=== PATIENT | male | born 1990 | race Caucasian/White ===

== ENCOUNTER 2016-11-20 08:40 | Emergency (ER) | payer SELFPAY ==
[~2016-11-20] VITALS: Ht 177.8 cm; Wt 95.3 kg
[2016-11-20] MEDS ORDERED: BACTRIM DS 8001 TA1 PO (10:08)
== END 2016-11-20 10:13 | disposition home or self-care (01) ==
LOC: ED 08:40
DX: S61.211A Laceration without foreign body of left index finger without damage to nail, initial encounter (principal); F17.200 Nicotine dependence, unspecified, uncomplicated; Z88.6 Allergy status to analgesic agent; W45.8XXA Other foreign body or object entering through skin, initial encounter; Y93.89 Activity, other specified; Y92.9 Unspecified place or not applicable; Y99.9 Unspecified external cause status

== ENCOUNTER 2016-12-10 04:01 | Inpatient (IN) | payer SELFPAY ==
[~2016-12-10] VITALS: Ht 177.8 cm; Wt 113.9 kg
[2016-12-10] VITALS (7 sets, daily range): BP systolic 120–153; BP diastolic 63–89
--- NOTE | ~2016-12-10 | PR ---
[place], [place] PROGRESS NOTE NAME: DOUGLAS MENSAH UNIT #: [id number] ROOM: 516 DOCTOR: PANDA LONGORIA DPM BIRTHDATE: [birth year] DOS: 12/13/2016 SUBJECTIVE: The patient presents postop day 1 post I and D of abscess, right foot. OBJECTIVE: The compressive dressing is intact with no breakthrough bleeding. Cap refill time is normal to the digit of the right foot. ASSESSMENT: Postop I and D, right foot. PLAN: The patient is to continue nonweightbearing status with crutches, dressing will be kept intact until tomorrow, and will be changed by Dr. Roy. PANDA LONGORIA DPM CM:BIMAL [id number] PANDA LONGORIA DPM 12/14/16 0250 interface
--- NOTE | ~2016-12-10 | PR ---
[place], [place] PROGRESS NOTE NAME: DOUGLAS MENSAH UNIT #: [id number] ROOM: 516 DOCTOR: RICKI BENAVIDEZ III, DPM BIRTHDATE: [birth year] DOS: 12/12/2016 TIME OF DICTATION: 11:44 a.m. SUBJECTIVE: This is a 26-year-old male seen at bedside for followup and reevaluation status post bedside I and D 2 days ago. The patient relates continued pain to the right foot. He denies any fevers, chills, nausea, vomiting, chest pain, shortness of breath, calf pain or thigh pain. OBJECTIVE: Neurovascular status is unchanged. The patient has residual cellulitis appreciated to the medial arch with pus drainage noted with pressure to the I and D site. No soft tissue crepitation. No cellulitis tracking to the proximal leg. Negative Homans', negative calf pain. Muscle strength is maintained. ASSESSMENT: Status post incision and drainage 2 days ago with residual abscess, right foot. Treatment plans, recommendations, findings as well as prognosis discussed in detail with the patient. All questions were answered to the patient's apparent satisfaction. This is a 26-year-old male seen at bedside, status post I and D of his right foot 2 days ago. The patient appears to have residual abscess appreciated to the right foot despite MRI findings suggesting no residual abscess. There is positive pus drainage noted with pressure to the I and D site of his right foot. Discussed the options with the patient. I think it is best to perform an I and D in the operating room to evacuate all potential infection. The patient is in agreement with plan. He will be n.p.o. starting now. We will consent him for an incision and drainage of his abscess to the right foot. All questions were answered. RICKI BENAVIDEZ III, DPM CM:BIMAL [id number] RICKI BENAVIDEZ III, DPM 12/13/16330 interface
--- NOTE | ~2016-12-10 | CON ---
[place], [place] REPORT OF CONSULTATION NAME: DOGULAS MENSAH UNIT #: [id number] ROOM: 516 DOCTOR: KELLY DE LEON DPM BIRTHDATE: [birth year] DOS: 12/10/2016 PODIATRY CONSULT SUBJECTIVE: This 26-year-old white male is seen in this consult for evaluation of a cellulitis and pain in his right foot. He states about a week ago, he was working on his trailer and he fell through a board. He was wearing a work boot, nothing punctured his foot, nothing bled according to the patient, but he started to get pain in the right foot. After that 2 days ago, he went to the [place] [facility] were they discharged him on oral antibiotics. He went to the [facility] today and was subsequently admitted. He states he got a large blister on the bottom of his foot, but again denies any other ever being a wound there. Denies any insect bite, puncture at this time. PAST MEDICAL HISTORY: Positive for psychiatric problems. CURRENT MEDICATIONS: Includes; Lovenox, Restoril, Zofran, morphine and the antibiotics were Zosyn and vancomycin. ALLERGIES: CONTRAST DYE WELL IBUPROFEN. OBJECTIVE: Pedal pulses are palpable. Hair growth is present. Skin temperature is warm. CFT is immediate to the digits. Sensation is grossly intact and symmetrical. No signs of muscle atrophy. Muscle strength is full without any deficits. The plantar right foot just at the distal arch has an area of a blister that is fluctuance, it is about 2 cm in diameter area, there is tenderness noted to palpation. There is some edema and erythema surrounding this by about 2-3 cm, but the fluctuance areas about 2 cm and there is no open wound. No sign of bite or puncture at this time. ASSESSMENT: Abscess, plantar right foot cellulitis, right foot. PLAN: Consult is performed. I used a 15 blade, incised the large area of blister and drainage, probably about 3-4 mL of purulent and serosanguineous fluid. No signs of foreign body was noted. I did cultured the area, flushed the area with saline and applied a dry dressing. I am going to order an MRI of the area to evaluate for any retained foreign body or a deep space abscess. The abscess this time looks full thickness, it does not look like ____, there is no deep sinus tracts and right now, no signs of a deep space infection, but we will have to monitor for that. We will see what the MRI shows, if there is any retained foreign body or any deep space abscess. I told him if it did show any of these things ____ antibiotics. he would need to go to surgery for a surgical I and D in the OR. Continue the antibiotics, again cultures were done, were sent for gram stain aerobic and anaerobic culture and sensitivity, and will reevaluate him tomorrow. Thank you for the opportunity to take part in care of this patient. [place], [place] REPORT OF CONSULTATION NAME: DOUGLAS MENSAH UNIT #: [id number] ROOM: 516 DOCTOR: KELLY DE LEON DPM BIRTHDATE: [birth year] KELLY DE LEON DPM CM:CONSTR:REPORT OF CONSULTATION 1238 12/11/16 0204 interface
--- NOTE | ~2016-12-10 | PR ---
[place], [place] PROGRESS NOTE NAME: DOUGLAS MENSAH UNIT #: [id number] ROOM: 516 DOCTOR: PANDA LONGORIA DPM BIRTHDATE: [birth year] DOS: 12/11/2016 SUBJECTIVE: The patient seen 1 day postop I and D plantar aspect of the right foot. The patient feels relief at this time after the incision and drainage. OBJECTIVE: Pedal pulses palpable. There is plantar incision site with mild purulent drainage noted on the dressing, which was applied after the procedure yesterday. There is localized erythema surrounding the incision site, tenderness upon palpation, edema still noted of the foot. Results of the right foot MRI revealed no drainable abscess or foreign body. I discussed the case via telephone with the radiologist personally. It showed plantar soft tissue swelling and edema. ASSESSMENT: Abscess, infection, plantar right foot. PLAN: Apply Bactroban and dressing daily. Consulted Infectious Disease, possible 2 weeks of IV antibiotics if warranted. Discussed with the patient, he should not go home from the hospital yet at this time as there is still erythema to the plantar foot and the patient is at risk. Discussed possible further I and D if warranted, but as the MRI was negative for further drainable abscess or foreign body, we will continue local wound care, offloading and antibiotics. The patient will be seen tomorrow by Dr. Easley for followup. PANDA LONGORIA DPM CM:PNYANNI [id number] PANDA LONGORIA DPM 12/12/16 1018 interface
--- NOTE | ~2016-12-10 | O ---
[place], [place] OPERATIVE NOTE NAME: DOUGLAS MENSAH UNIT #: [id number] ROOM: 516 DOCTOR: GET BENAVIDEZ III, DPM BIRTHDATE: [birth year] DOS: 12/12/2016 SURGEON: Get Benavidez DPM DISTRICT SUPERVISOR: Torres Diaz DPM ANESTHESIA: Monitored anesthesia care. PREOPERATIVE DIAGNOSIS: Residual abscess, right foot. POSTOPERATIVE DIAGNOSIS: Residual abscess, right foot. PROCEDURE: I and D of abscess, right foot. HEMOSTASIS: None. ESTIMATED BLOOD LOSS: 10 mL. MATERIALS: Half inch packing was applied to the base of the wound at the conclusion of the case. INJECTABLES: Approximately 30 mL of 0.5% Marcaine plain was injected in a local ankle block type fashion at the start of the case. FINDINGS: The patient had residual abscess that tracked plantarly as well as in a medial direction. The abscess was evacuated. Partial closure was performed and the remaining aspect of the wound was packed open. COMPLICATIONS: None. HISTORY OF PRESENT ILLNESS: This is a 26-year-old male who was seen at bedside yesterday regarding an I and D that was performed at the bedside a few days prior. On examination, the patient appeared to have residual abscess that was appreciated. Despite the fact that MRI did not appreciate any foreign body or appreciable abscess, there was one present on clinical exam. The patient had some redness that was extending into the right arch as well as pain upon palpation. I felt that it was in the patient's best interest to have a more thorough I and D in the operating room. The patient was in agreement with plan. All risks, benefits, complications, procedures, alternatives were discussed and all questions were answered to his apparent satisfaction. The pre, silverio, postoperative course was discussed as well. PHYSICAL EXAMINATION: VASCULAR: DP and PT pulses are palpable, CFT within normal limits, mild edema to the plantar foot. DERMATOLOGY: The patient has a deep wound appreciated to the subfourth metatarsal head with what appears to be a fluctuant area adjacent to the wound. There was localized pus appreciated with pressure to the wound, there was also some erythema extending into the arch as well. No soft tissue crepitation. No cellulitis or lymphangitis tracking proximally. [place], [place] OPERATIVE NOTE NAME: DOUGLAS MENSAH UNIT #: [id number] ROOM: 516 DOCTOR: GET BENAVIDEZ III, DPM BIRTHDATE: [birth year] NEUROLOGIC: Intact protective sensation. ORTHOPEDIC: Muscle strength is maintained. Negative Homans', negative calf pain. PROCEDURE IN DETAIL: The patient was brought to the operating room and laid on the table in supine position. Foot was prepped and draped in usual sterile fashion. Pneumatic compression device was placed on the contralateral limb for DVT prophylaxis. No antibiotics were administered preoperatively as he was receiving antibiotics on the floor. Our attention was directed to the plantar right foot where again a wound with a fluctuant area was appreciated to the distal plantar forefoot. With pressure to the wound, some pus was present, then approximately 3-4 mL of pus was exuded and sent for culture. Full thickness excisional debridement of all nonviable tissue was performed through deep fascia. There appeared to be a fluctuant area that extended medially from the base of the wound. Therefore, at this time, a full thickness incision was created through skin as well as subcutaneous tissue to evacuate any residual abscess. All abscess was evacuated. Full thickness excisional debridement of all nonviable tissue was performed to and through deep fascia. Copious irrigation was then performed with approximately 3 liters of sterile saline. It appeared that all nonviable infected soft tissue had been removed. At this time, we then performed a delayed closure of the wound with 2-0 nylon and remaining wound was packed open to allow for drainage. At this time, a well-padded, surgical dressing was then applied. Prior to the start of the procedure, approximately 30 mL of 0.5% Marcaine plain was used in a local block, ankle block type fashion. The patient tolerated the procedure well and left the operating room with neurovascular status intact and vital signs stable. Prognosis for healing is good. He will be readmitted back to the floor for Infectious Disease as well as Medicine followup. GET BENAVIDEZ III, DPM CM:OPRECORD:OPERATIVE NOTE [id number] GET BENAVIDEZ III, DPM 12/13/16 110 interface
[~2016-12-10 04:01] MED LIST: BACTRIM DS 8001 TA1 PO
[2016-12-10 04:50] LABS: BASO % 0.2 % (0.0-1.0); EOS # 0.1 10*3/uL (0.0-0.4); EOS % 0.7 % (1.0-4.0); HEMATOCRIT 43.6 % (42.0-52.0); HEMOGLOBIN 14.4 g/dl (14.0-18.0); IG # 0.1 10*3/uL (0.0-0.1); LYMPH # 1.5 10*3/uL (1.3-4.4); LYMPH % 10.4 % (27.0-41.0); MEAN CELL VOLUME 81.8 fl (80.0-94.0); MEAN PLATELET VOLUME 10.6 fl (9.6-12.3); MONO # 1.2 10*3/uL (0.1-1.0); MONO % 8.6 % (3.0-9.0); NEUT # 11.3 10*3/uL (2.3-7.9); NEUT % 79.7 % (47.0-73.0); PLATELET COUNT AUTOMATED 229 10*3/uL (130-400); RED BLOOD COUNT 5.33 10*6/uL (4.50-5.90); WHITE BLOOD COUNT 14.2 10*3/uL (4.8-10.8)
[2016-12-10 05:02] LABS: BUN 11 mg/dl (7-24); C-REACTIVE PROTEIN 6.49 MG/DL (0-0.3); CARBON DIOXIDE 28 mmol/L (21-32); CHLORIDE 104 mmol/L (98-107); EST GLOM FILT AFRICAN AMERICAN > 60 ml/min; GLUCOSE 101 mg/dL (65-99); POTASSIUM 3.8 mmol/L (3.5-5.1); SODIUM 140 mmol/L (136-145)
[2016-12-11] VITALS: BP 129/69
[2016-12-11 06:52] LABS: BASO % 0.2 % (0.0-1.0); EOS # 0.2 10*3/uL (0.0-0.4); EOS % 1.5 % (1.0-4.0); HEMATOCRIT 44.1 % (42.0-52.0); HEMOGLOBIN 14.3 g/dl (14.0-18.0); IG # 0.1 10*3/uL (0.0-0.1); LYMPH # 1.5 10*3/uL (1.3-4.4); LYMPH % 14.5 % (27.0-41.0); MEAN CELL VOLUME 82.4 fl (80.0-94.0); MEAN CORPUSCULAR HGB 26.7 pg (27.0-31.0); MEAN CORPUSCULAR HGB CONC 32.4 g/dl (33.0-37.0); MEAN PLATELET VOLUME 10.9 fl (9.6-12.3); MONO # 0.9 10*3/uL (0.1-1.0); MONO % 8.7 % (3.0-9.0); NEUT # 7.9 10*3/uL (2.3-7.9); NEUT % 74.6 % (47.0-73.0); PLATELET COUNT AUTOMATED 249 10*3/uL (130-400); RED BLOOD COUNT 5.35 10*6/uL (4.50-5.90); RED CELL DISTRI WIDTH 13.2 % (0-14.5); WHITE BLOOD COUNT 10.6 10*3/uL (4.8-10.8)
[2016-12-11 06:55] LABS: HEMOGLOBIN A1c 5.1 % (4.8-5.6)
[2016-12-11 07:12] LABS: ALBUMIN 3.3 gm/dl (3.1-4.5); ALKALINE PHOSPHATASE 91 U/L (45-117); BILIRUBIN, TOTAL 0.5 mg/dl (0.2-1.0); BUN 7 mg/dl (7-24); CARBON DIOXIDE 26 mmol/L (21-32); CHLORIDE 107 mmol/L (98-107); CHOLESTEROL 175 mg/dL (<200); EST GLOM FILT AFRICAN AMERICAN > 60 ml/min; FREE T4 0.93 ng/dl (0.76-1.46); GLUCOSE 92 mg/dL (65-99); HDL CHOLESTEROL 46 mg/dl (40-60); LDL CHOLESTEROL 107 mg/dL (9-159); MAGNESIUM 1.7 mg/dL (1.5-2.1); PHOSPHOROUS 2.3 mg/dL (2.5-4.9); POTASSIUM 3.8 mmol/L (3.5-5.1); SGOT/AST 14 IU/L (3-35); SGPT/ALT 29 U/L (12-78); SODIUM 139 mmol/L (136-145); TOTAL PROTEIN 7.1 gm/dL (6.4-8.2); TRIGLYCERIDES 109 mg/dl (<150); VLDL CHOLESTEROL 22 mg/dL (6-40)
[2016-12-11 07:15] LABS: PROTHROMBIN TIME 10.3 SECONDS (9.0-12.4)
[2016-12-11 07:32] LABS: VITAMIN D, 25-HYDROXY 25.7 ng/mL (30-100)
[2016-12-11 07:33] LABS: FOLIC ACID 13.7 ng/mL (>5.38)
[2016-12-11 08:00] VITALS: BP 132/77
[2016-12-11 12:00] VITALS: BP 131/74
[2016-12-11 16:00] VITALS: BP 150/70
[2016-12-11 20:00] VITALS: BP 121/74
[2016-12-12] VITALS (8 sets, daily range): BP systolic 112–159; BP diastolic 48–98
[2016-12-13] VITALS: BP 133/74
[2016-12-13 07:33] LABS: BUN 11 mg/dl (7-24); CARBON DIOXIDE 28 mmol/L (21-32); CHLORIDE 103 mmol/L (98-107); EST GLOM FILT AFRICAN AMERICAN > 60 ml/min; GLUCOSE 85 mg/dL (65-99); PHOSPHOROUS 3.4 mg/dL (2.5-4.9); POTASSIUM 4.6 mmol/L (3.5-5.1); SODIUM 140 mmol/L (136-145)
[2016-12-13 08:00] VITALS: BP 149/80
[2016-12-13 12:00] VITALS: BP 133/70
[2016-12-13 16:00] VITALS: BP 133/77
[2016-12-13] MEDS ORDERED: HYDROCODONE BIT1 T11 PO (17:11)
[2016-12-13] MEDS ORDERED: BACTRIM DS 8001 TA1 PO (17:11)
[2016-12-13] MEDS ORDERED: D-1000 185 MG-11 TAB PO (17:15)
== END 2016-12-13 17:55 | disposition home or self-care (01) | DRG 854 ==
LOC: ED 04:01 → EDHOLD 06:27 → 5E 06:27
PROVIDERS: Emergency Medicine Emergency Medical Services; Internal Medicine; Podiatrist Foot & Ankle Surgery
PROC: 0JBQ0ZZ Excision of Right Foot Subcutaneous Tissue and Fascia, Open Approach (ICD-10-PCS; principal; 2016-12-13)
DX: A41.9 Sepsis, unspecified organism (principal); L03.115 Cellulitis of right lower limb; R00.1 Bradycardia, unspecified; L02.611 Cutaneous abscess of right foot; F42.9 Obsessive-compulsive disorder, unspecified; F31.9 Bipolar disorder, unspecified; B95.61 Methicillin susceptible Staphylococcus aureus infection as the cause of diseases classified elsewhere; E55.9 Vitamin D deficiency, unspecified; E66.9 Obesity, unspecified; R73.9 Hyperglycemia, unspecified; Z82.49 Family history of ischemic heart disease and other diseases of the circulatory system; Z83.3 Family history of diabetes mellitus; Z91.041 Radiographic dye allergy status; Z88.6 Allergy status to analgesic agent; Z91.19 Patient's noncompliance with other medical treatment and regimen; Z68.35 Body mass index [BMI] 35.0-35.9, adult

== ENCOUNTER 2019-12-31 09:38 | Emergency (ER) | payer SELFPAY ==
[~2019-12-31 09:38] MED LIST changes: +D-1000 185 MG-11 TAB PO; +HYDROCODONE BIT1 T11 PO
[2019-12-31] MEDS ORDERED: PREDNISONE20 M1 PO (11:48)
[2019-12-31] MEDS ORDERED: ROBAXIN-750750 MG PO (11:48)
== END 2019-12-31 11:50 | disposition home or self-care (01) ==
LOC: ED 09:38
DX: S33.5XXA Sprain of ligaments of lumbar spine, initial encounter (principal); F31.9 Bipolar disorder, unspecified; Z88.8 Allergy status to other drugs, medicaments and biological substances; Z91.041 Radiographic dye allergy status; Z79.899 Other long term (current) drug therapy; X58.XXXA Exposure to other specified factors, initial encounter; Y93.89 Activity, other specified; Y92.89 Other specified places as the place of occurrence of the external cause; Y99.8 Other external cause status

== ENCOUNTER 2020-01-06 20:19 | Emergency (ER) | payer SELFPAY ==
[~2020-01-06] VITALS: Ht 175.2 cm; Wt 108.9 kg
[~2020-01-06 20:19] MED LIST changes: +PREDNISONE20 M1 PO; +ROBAXIN-750750 MG PO
== END 2020-01-06 21:06 | disposition left against medical advice (07) ==
LOC: ED 20:19
DX: R11.2 Nausea with vomiting, unspecified (principal); F31.9 Bipolar disorder, unspecified; Z88.1 Allergy status to other antibiotic agents; Z91.041 Radiographic dye allergy status; Z88.8 Allergy status to other drugs, medicaments and biological substances; Z79.899 Other long term (current) drug therapy

== ENCOUNTER 2021-01-30 19:18 | Emergency (ER) | payer SELFPAY ==
[2021-01-30 19:59] LABS: BASO % 0.1 % (0.0-1.0); EOS % 0.2 % (1.0-4.0); HEMATOCRIT 46.6 % (42.0-52.0); LYMPH # 1.3 10*3/uL (1.3-4.4); LYMPH % 12.9 % (27.0-41.0); MEAN CELL VOLUME 82.2 fl (80.0-94.0); MEAN CORPUSCULAR HGB 26.6 pg (27.0-31.0); MEAN CORPUSCULAR HGB CONC 32.4 g/dl (33.0-37.0); MEAN PLATELET VOLUME 10.9 fl (9.6-12.3); MONO # 1.3 10*3/uL (0.1-1.0); MONO % 12.8 % (3.0-9.0); NEUT # 7.3 10*3/uL (2.3-7.9); NEUT % 73.5 % (47.0-73.0); PLATELET COUNT AUTOMATED 202 10*3/uL (130-400); RED BLOOD COUNT 5.67 10*6/uL (4.50-5.90); RED CELL DISTRI WIDTH 13.2 % (0-14.5)
[2021-01-30 20:01] LABS: BILIRUBIN Negative (Negative); BLOOD Negative (Negative); CLARITY Clear (Clear); COLOR Yellow (Yellow); GLUCOSE Negative (Negative); KETONE Negative (Negative); LEUKO ESTERASE Negative (Negative); NITRITE Negative (Negative); SPECIFIC GRAVITY <= 1.005 (1.001-1.030); UROBILINOGEN 0.2 E.U./dl (0.0-1.0)
[2021-01-30 20:06] LABS: BACTERIA TRACE; RBC 0-2 rbc/hpf (0-2)
[2021-01-30 20:13] LABS: ALBUMIN 3.6 gm/dl (3.1-4.5); ALKALINE PHOSPHATASE 77 U/L (45-117); BUN 15 mg/dl (7-24); CHLORIDE 102 mmol/L (98-107); CREATININE 0.96 mg/dL (0.70-1.30); SGOT/AST 29 IU/L (3-35); SGPT/ALT 46 U/L (12-78); SODIUM 138 mmol/L (136-145); TOTAL PROTEIN 7.8 gm/dL (6.4-8.2)
== END 2021-01-30 21:15 | disposition home or self-care (01) ==
LOC: ED 19:18
PROVIDERS: Emergency Medicine
DX: T67.9XXA Effect of heat and light, unspecified, initial encounter (principal); F31.9 Bipolar disorder, unspecified; R42 Dizziness and giddiness; E66.9 Obesity, unspecified; Z88.1 Allergy status to other antibiotic agents; Z91.041 Radiographic dye allergy status; Z88.6 Allergy status to analgesic agent; Z79.2 Long term (current) use of antibiotics; Z79.899 Other long term (current) drug therapy; Z68.30 Body mass index [BMI] 30.0-30.9, adult; X58.XXXA Exposure to other specified factors, initial encounter; Y93.01 Activity, walking, marching and hiking; Y92.488 Other paved roadways as the place of occurrence of the external cause; Y99.8 Other external cause status

== ENCOUNTER 2021-03-06 19:53 | Emergency (ER) | payer OTHER ==
[~2021-03-06] VITALS: Ht 177.8 cm; Wt 113.4 kg
[2021-03-06 20:38] LABS: BASO % 0.2 % (0.0-1.0); EOS # 0.2 10*3/uL (0.0-0.4); EOS % 3.5 % (1.0-4.0); HEMATOCRIT 46.5 % (42.0-52.0); LYMPH # 1.4 10*3/uL (1.3-4.4); LYMPH % 22.3 % (27.0-41.0); MEAN CELL VOLUME 84.2 fl (80.0-94.0); MEAN PLATELET VOLUME 10.6 fl (9.6-12.3); MONO # 0.9 10*3/uL (0.1-1.0); MONO % 13.8 % (3.0-9.0); NEUT # 3.8 10*3/uL (2.3-7.9); PLATELET COUNT AUTOMATED 212 10*3/uL (130-400); RED BLOOD COUNT 5.52 10*6/uL (4.50-5.90); RED CELL DISTRI WIDTH 13.9 % (0-14.5); WHITE BLOOD COUNT 6.3 10*3/uL (4.8-10.8)
[2021-03-06 20:53] LABS: ALBUMIN 3.7 gm/dl (3.1-4.5); ALKALINE PHOSPHATASE 94 U/L (45-117); BUN 12 mg/dl (7-24); CHLORIDE 107 mmol/L (98-107); CREATININE 0.95 mg/dL (0.70-1.30); LIPASE 65 U/L (73-393); POTASSIUM 3.5 mmol/L (3.5-5.1); SGOT/AST 17 IU/L (3-35); SGPT/ALT 42 U/L (12-78); SODIUM 140 mmol/L (136-145); TOTAL PROTEIN 7.3 gm/dL (6.4-8.2)
[2021-03-06 21:29] LABS: BILIRUBIN Negative (Negative); BLOOD Negative (Negative); CLARITY Clear (Clear); COLOR Yellow (Yellow); GLUCOSE Negative (Negative); KETONE Negative (Negative); LEUKO ESTERASE Negative (Negative); NITRITE Negative (Negative); PH 5.5 (4.5-8.0)
[2021-03-06 21:38] LABS: BACTERIA TRACE
== END 2021-03-06 23:50 | disposition home or self-care (01) ==
LOC: ED 19:53
PROVIDERS: Physician Assistant
DX: R11.10 Vomiting, unspecified (principal); Z88.1 Allergy status to other antibiotic agents; Z91.041 Radiographic dye allergy status; Z88.8 Allergy status to other drugs, medicaments and biological substances; Z79.899 Other long term (current) drug therapy; Z79.2 Long term (current) use of antibiotics; K59.00 Constipation, unspecified

== ENCOUNTER 2021-04-12 07:33 | Emergency (ER) | payer OTHER ==
[2021-04-12 08:06] LABS: EOS % 0.8 % (1.0-4.0); HEMATOCRIT 47.5 % (42.0-52.0); LYMPH # 0.8 10*3/uL (1.3-4.4); LYMPH % 21.3 % (27.0-41.0); MEAN CELL VOLUME 85.3 fl (80.0-94.0); MEAN CORPUSCULAR HGB 27.1 pg (27.0-31.0); MEAN CORPUSCULAR HGB CONC 31.8 g/dl (33.0-37.0); MEAN PLATELET VOLUME 10.3 fl (9.6-12.3); MONO # 0.6 10*3/uL (0.1-1.0); MONO % 15.9 % (3.0-9.0); NEUT # 2.4 10*3/uL (2.3-7.9); NEUT % 61.7 % (47.0-73.0); PLATELET COUNT AUTOMATED 176 10*3/uL (130-400); RED BLOOD COUNT 5.57 10*6/uL (4.50-5.90); RED CELL DISTRI WIDTH 13.5 % (0-14.5); WHITE BLOOD COUNT 3.9 10*3/uL (4.8-10.8)
[2021-04-12 08:20] LABS: ALBUMIN 3.7 gm/dl (3.1-4.5); ALKALINE PHOSPHATASE 93 U/L (45-117); BUN 12 mg/dl (7-24); CHLORIDE 104 mmol/L (98-107); CREATININE 1.16 mg/dL (0.70-1.30); LIPASE 89 U/L (73-393); POTASSIUM 3.8 mmol/L (3.5-5.1); SGOT/AST 35 IU/L (3-35); SGPT/ALT 62 U/L (12-78); SODIUM 138 mmol/L (136-145)
[2021-04-12] MEDS ORDERED: PHENERGAN25 M3 PO (08:54)
== END 2021-04-12 09:56 | disposition home or self-care (01) ==
LOC: ED 07:33
PROVIDERS: Emergency Medicine
DX: U07.1 COVID-19 (principal); R11.10 Vomiting, unspecified; Z79.899 Other long term (current) drug therapy; Z88.1 Allergy status to other antibiotic agents; Z91.041 Radiographic dye allergy status; Z88.6 Allergy status to analgesic agent

== ENCOUNTER 2021-04-13 09:23 | Emergency (ER) | payer OTHER ==
[~2021-04-13] VITALS: Ht 177.8 cm; Wt 113.4 kg
[~2021-04-13 09:23] MED LIST changes: +PHENERGAN25 M3 PO
[2021-04-13 10:09] LABS: BASO % 0.3 % (0.0-1.0); EOS % 0.6 % (1.0-4.0); LYMPH # 0.6 10*3/uL (1.3-4.4); LYMPH % 19.1 % (27.0-41.0); MEAN CELL VOLUME 85.1 fl (80.0-94.0); MEAN CORPUSCULAR HGB 27.2 pg (27.0-31.0); MEAN PLATELET VOLUME 10.3 fl (9.6-12.3); MONO # 0.6 10*3/uL (0.1-1.0); MONO % 19.1 % (3.0-9.0); NEUT # 1.9 10*3/uL (2.3-7.9); NEUT % 60.6 % (47.0-73.0); PLATELET COUNT AUTOMATED 148 10*3/uL (130-400); RED BLOOD COUNT 5.29 10*6/uL (4.50-5.90); RED CELL DISTRI WIDTH 13.5 % (0-14.5); WHITE BLOOD COUNT 3.1 10*3/uL (4.8-10.8)
[2021-04-13 10:24] LABS: ALBUMIN 3.5 gm/dl (3.1-4.5); ALKALINE PHOSPHATASE 81 U/L (45-117); BUN 11 mg/dl (7-24); CHLORIDE 108 mmol/L (98-107); CREATININE 1.05 mg/dL (0.70-1.30); LIPASE 78 U/L (73-393); POTASSIUM 4.2 mmol/L (3.5-5.1); SGOT/AST 36 IU/L (3-35); SGPT/ALT 58 U/L (12-78); SODIUM 139 mmol/L (136-145); TOTAL PROTEIN 7.5 gm/dL (6.4-8.2)
== END 2021-04-13 14:47 | disposition home or self-care (01) ==
LOC: ED 09:23
PROVIDERS: Family Medicine
DX: U07.1 COVID-19 (principal); Z88.1 Allergy status to other antibiotic agents; Z91.041 Radiographic dye allergy status; Z88.8 Allergy status to other drugs, medicaments and biological substances

== ENCOUNTER 2022-04-30 10:13 | Emergency (ER) | payer OTHER ==
[~2022-04-30] VITALS: Ht 177.8 cm; Wt 106.6 kg
== END 2022-04-30 12:40 | disposition home or self-care (01) ==
LOC: ED 10:13
DX: S20.211A Contusion of right front wall of thorax, initial encounter (principal); Z88.1 Allergy status to other antibiotic agents; Z91.041 Radiographic dye allergy status; Z88.8 Allergy status to other drugs, medicaments and biological substances; Z98.890 Other specified postprocedural states; V89.2XXA Person injured in unspecified motor-vehicle accident, traffic, initial encounter; Y93.89 Activity, other specified; Y92.89 Other specified places as the place of occurrence of the external cause; Y99.8 Other external cause status

== ENCOUNTER 2023-01-31 15:30 | Emergency (ER) | payer OTHER ==
[~2023-01-31] VITALS: Ht 180.3 cm; Wt 113.4 kg
[2023-01-31 16:06] LABS: BILIRUBIN Negative (Negative); BLOOD Negative (Negative); CLARITY Clear (Clear); COLOR Yellow (Yellow); GLUCOSE Negative (Negative); KETONE Negative (Negative); LEUKO ESTERASE Trace (Negative); NITRITE Negative (Negative); PH 5.5 (4.5-8.0); SPECIFIC GRAVITY 1.015 (1.001-1.030); UROBILINOGEN 0.2 E.U./dl (0.0-1.0)
[2023-01-31 16:14] LABS: URINE AMPHETAMINES Negative (1000ng/ml); URINE BARBITURATES Negative (200ng/ml); URINE BENZODIAZEPINES Negative (200ng/ml); URINE CANNABINOIDS (THC) Negative (50ng/ml); URINE COCAINE Negative (300ng/ml); URINE METHADONE Negative (300ng/ml); URINE OPIATES Negative (300ng/ml); URINE PHENCYCLIDINE Negative (25ng/ml)
[2023-01-31 16:19] LABS: RBC 0-2 rbc/hpf (0-2)
[2023-01-31 16:20] LABS: BACTERIA 1+
[2023-01-31 16:22] LABS: BASO % 0.2 % (0.0-1.0); EOS # 0.1 10*3/uL (0.0-0.4); EOS % 0.9 % (1.0-4.0); HEMATOCRIT 48.1 % (42.0-52.0); LYMPH # 1.1 10*3/uL (1.3-4.4); LYMPH % 9.8 % (27.0-41.0); MEAN CELL VOLUME 82.5 fl (80.0-94.0); MEAN CORPUSCULAR HGB 27.3 pg (27.0-31.0); MEAN CORPUSCULAR HGB CONC 33.1 g/dl (33.0-37.0); MEAN PLATELET VOLUME 10.5 fl (9.6-12.3); MONO # 0.8 10*3/uL (0.1-1.0); MONO % 7.5 % (3.0-9.0); NEUT # 8.8 10*3/uL (2.3-7.9); NEUT % 81.3 % (47.0-73.0); PLATELET COUNT AUTOMATED 228 10*3/uL (130-400); RED BLOOD COUNT 5.83 10*6/uL (4.50-5.90); RED CELL DISTRI WIDTH 13.2 % (0-14.5); WHITE BLOOD COUNT 10.9 10*3/uL (4.8-10.8)
[2023-01-31 16:37] LABS: ACT PARTIAL THROMBO TIME 28.7 SECONDS (20.0-32.1)
[2023-01-31 16:49] LABS: ALKALINE PHOSPHATASE 84 U/L (46-116); BUN 8 mg/dl (9-23); CHLORIDE 106 mmol/L (98-107); CPK 142 U/L (34-171); LIPASE 34 U/L (12-53); POTASSIUM 4.2 mmol/L (3.4-5.1); SGPT/ALT 43 U/L (10-49); TOTAL PROTEIN 7.7 gm/dL (6.0-8.0)
[2023-01-31 16:52] LABS: ETHYL ALCOHOL < 3.0 mg/dl (<3)
== END 2023-01-31 20:21 | disposition home or self-care (01) ==
LOC: ED 15:30
PROVIDERS: Emergency Medicine; Internal Medicine
DX: F43.25 Adjustment disorder with mixed disturbance of emotions and conduct (principal); F31.9 Bipolar disorder, unspecified; Z88.1 Allergy status to other antibiotic agents; Z91.041 Radiographic dye allergy status; Z88.6 Allergy status to analgesic agent; Z98.890 Other specified postprocedural states; Z79.899 Other long term (current) drug therapy